=== PATIENT | male | born 1980 | race Caucasian/White ===

== ENCOUNTER 2019-07-15 22:35 | Emergency (ER) | payer OTHER ==
[~2019-07-15] VITALS: Ht 177.8 cm; Wt 98.1 kg
[2019-07-15 22:38] VITALS: Ht 177.8 cm; Wt 98.1 kg
[2019-07-16 01:44] VITALS: BP 130/77
== END 2019-07-16 01:44 | disposition home or self-care (01) ==
LOC: ED 22:35
DX: S61.411A Laceration without foreign body of right hand, initial encounter (principal); X99.1XXA Assault by knife, initial encounter; Y93.89 Activity, other specified; Y92.89 Other specified places as the place of occurrence of the external cause; Y99.8 Other external cause status
CPT/HCPCS: 90715; J2001